=== PATIENT | female | born 1955 | race Caucasian/White ===

== ENCOUNTER 2016-06-26 15:38 | Emergency (ER) | payer BC ==
[~2016-06-26] VITALS: Ht 167.6 cm; Wt 68.2 kg
[~2016-06-26 15:38] MED LIST: PRINZIDE 12.5 M1 TA1 PO
[2016-06-26 15:42] VITALS: BP 113/62; TEMP 97.7
[2016-06-26 16:19] LABS: BASO # 0.1 (0.0-0.2); BASO % 0.4 % (0.0-2.0); EOS # 0.3 (0.0-0.7); EOS % 1.9 % (0-4.0); GRAN # 10.8 (1.4-6.5); GRAN % 77.1 % (42.2-75.2); HEMATOCRIT 45.8 % (37.0-47.0); HEMOGLOBIN 15.2 g/dl (12.5-16.0); LYMPH % 14.3 % (20.0-51.0); MEAN CELL VOLUME 90 fl (80.0-100.0); MEAN CORPUSCULAR HEMOGLOBIN 30 pg (27.0-31.0); MEAN CORPUSCULAR HGB CONC 33 g/dl (33.0-37.0); MEAN PLATELET VOLUME 11.5 fl (7.4-10.4); MONO # 0.8 (0.1-0.6); PLATELET COUNT 160 K/mm3 (130-400); RED BLOOD COUNT 5.09 M/mm3 (4.10-5.30); REDCELL DISTRIBUTION WIDTH-CV 13.5 % (11.5-14.5); WHITE BLOOD COUNT 13.9 K/mm3 (4.8-10.8)
[2016-06-26 16:26] LABS: PH 5 (5-8); SQUAMOUS EPITHELIAL 0-2 /hpf; URINE APPEARANCE Cloudy; URINE BACTERIA None Seen /hpf; URINE BILIRUBIN Negative (NEGATIVE); URINE BLOOD 3+ (NEGATIVE); URINE COLOR Yellow; URINE GLUCOSE Negative (NEGATIVE); URINE KETONE Negative (NEGATIVE); URINE RBC >50 /hpf; URINE UROBILINOGEN Negative (NEGATIVE); URINE WBC >50 /hpf
[2016-06-26 16:30] LABS: ADJUSTED CALCIUM 9.7 mg/dL (8.4-10.2); ALBUMIN 4.1 gm/dL (3.5-5.0); BILIRUBIN,TOTAL 0.7 mg/dL (0.0-1.0); CALCIUM 9.8 mg/dL (8.4-10.2); CREATININE, serum 0.9 mg/dL (0.52-1.25); POTASSIUM 3.9 mmol/L (3.4-5.0); TOTAL PROTEIN 7.1 gm/dL (6.4-8.2)
[2016-06-26] MEDS ORDERED: NORCO 325 MG-51 TAB PO (17:29)
[2016-06-26] MEDS ORDERED: OMNICEF 300MG300 MG PO (17:29)
[2016-06-26 17:39] VITALS: PULSE 75
== END 2016-06-26 17:39 | disposition home or self-care (01) ==
LOC: COL.ER 15:38
PROVIDERS: Nurse Practitioner
DX: N20.2 Calculus of kidney with calculus of ureter (principal); I10 Essential (primary) hypertension; F17.210 Nicotine dependence, cigarettes, uncomplicated; N27.0 Small kidney, unilateral
CPT/HCPCS: J0696; J1885; J2405; J3010; J7030; Q9967

== ENCOUNTER 2016-09-19 08:33 | Inpatient (IN) | payer BC ==
[~2016-09-19] VITALS: Ht 165.1 cm; Wt 75.3 kg
[~2016-09-19 08:33] MED LIST changes: +NORCO 325 MG-51 TAB PO; +OMNICEF 300MG300 MG PO
[2016-09-20] VITALS (10 sets, daily range): BP systolic 116–131; BP diastolic 55–89; PULSE 68–86; TEMP 97.4–97.7
[2016-09-20] MEDS ORDERED: NORCO 325 MG-51 TAB PO (09:30)
[2016-09-20 10:11] LABS: HEMATOCRIT 44.3 % (37.0-47.0); HEMOGLOBIN 14.7 g/dl (12.5-16.0)
[2016-09-20 13:24] LABS: BASO % 0.3 % (0.0-2.0); EOS # 0.1 (0.0-0.7); EOS % 1.3 % (0-4.0); GRAN # 8.7 (1.4-6.5); GRAN % 84.7 % (42.2-75.2); HEMATOCRIT 40.2 % (37.0-47.0); HEMOGLOBIN 13.5 g/dl (12.5-16.0); LYMPH # 1.1 (1.2-3.4); LYMPH % 10.7 % (20.0-51.0); MEAN CELL VOLUME 91 fl (80.0-100.0); MEAN CORPUSCULAR HEMOGLOBIN 31 pg (27.0-31.0); MEAN CORPUSCULAR HGB CONC 34 g/dl (33.0-37.0); MONO # 0.3 (0.1-0.6); MONO % 2.6 % (1.7-9.3); PLATELET COUNT 139 K/mm3 (130-400); RED BLOOD COUNT 4.41 M/mm3 (4.10-5.30); REDCELL DISTRIBUTION WIDTH-CV 14.1 % (11.5-14.5); WHITE BLOOD COUNT 10.3 K/mm3 (4.8-10.8)
[2016-09-20 13:35] LABS: CALCIUM 8.8 mg/dL (8.4-10.2); CREATININE, serum 0.98 mg/dL (0.52-1.25); POTASSIUM 4.4 mmol/L (3.4-5.0)
[2016-09-21 01:14] VITALS: BP 130/57; PULSE 78; TEMP 98.2
[2016-09-21 05:08] VITALS: BP 118/55; PULSE 79; TEMP 97.7
[2016-09-21 07:09] LABS: BASO % 0.2 % (0.0-2.0); EOS % 0.1 % (0-4.0); GRAN # 10.4 (1.4-6.5); GRAN % 80.2 % (42.2-75.2); HEMOGLOBIN 12.1 g/dl (12.5-16.0); LYMPH # 1.6 (1.2-3.4); LYMPH % 12.7 % (20.0-51.0); MEAN CELL VOLUME 91 fl (80.0-100.0); MEAN CORPUSCULAR HEMOGLOBIN 30 pg (27.0-31.0); MEAN CORPUSCULAR HGB CONC 33 g/dl (33.0-37.0); MEAN PLATELET VOLUME 11.5 fl (7.4-10.4); MONO # 0.8 (0.1-0.6); MONO % 6.3 % (1.7-9.3); PLATELET COUNT 137 K/mm3 (130-400); RED BLOOD COUNT 4.04 M/mm3 (4.10-5.30); REDCELL DISTRIBUTION WIDTH-CV 14.3 % (11.5-14.5); WHITE BLOOD COUNT 12.9 K/mm3 (4.8-10.8)
[2016-09-21 07:22] LABS: CALCIUM 8.6 mg/dL (8.4-10.2); CREATININE, serum 1.12 mg/dL (0.52-1.25); POTASSIUM 4.5 mmol/L (3.4-5.0)
[2016-09-21 07:35] LABS: HEMATOCRIT 36.6 % (37.0-47.0)
[2016-09-21 09:45] VITALS: BP 132/69; PULSE 71; TEMP 97.8
[2016-09-21 13:59] VITALS: BP 135/71; PULSE 86; TEMP 97.5
== END 2016-09-21 15:55 | disposition home or self-care (01) | DRG 660 ==
LOC: INPTSU 09-20 09:12 → SURG 09-20 09:12
PROVIDERS: Nurse Anesthetist, Certified Registered; Urology
PROC: 8E0W4CZ Robotic Assisted Procedure of Trunk Region, Percutaneous Endoscopic Approach (ICD-10-PCS; 2016-09-20)
PROC: 0TT04ZZ Resection of Right Kidney, Percutaneous Endoscopic Approach (ICD-10-PCS; principal; 2016-09-20 11:15)
DX: I12.9 Hypertensive chronic kidney disease with stage 1 through stage 4 chronic kidney disease, or unspecified chronic kidney disease (principal); N20.1 Calculus of ureter; N18.9 Chronic kidney disease, unspecified
CPT/HCPCS: A4315; A9284; J1100; J1644; J1885; J2405; J2704; J3010; J7120

== ENCOUNTER 2020-04-30 07:30 | Day surgery (SDC) | payer BC ==
[~2020-04-30] VITALS: Ht 167.6 cm; Wt 31.3 kg
[2020-04-30 08:06] VITALS: BP 142/65; PULSE 77; TEMP 97.5
--- NOTE | 2020-04-30 08:13 | NUR ---
TO [facility] 4 AT 0746- CALL LIGHT IN REACH
[2020-04-30] MEDS ORDERED: PRINIVIL20 MG PO (08:15)
[2020-04-30 09:42] VITALS: BP 96/56; PULSE 83
--- NOTE | 2020-04-30 09:42 | NUR ---
TO [facility] 4 PER CART FROM ENDOSCOPY. ALERT ORIENTED AND TALKING WITH STAFF. AMBULATED TO RECLINER WITH ASSIST AND TOLERATED WELL. RECEIVED SPRITE. DENIES WANTING ANYTHING TO EAT.
[2020-04-30 10:00] VITALS: BP 99/61; PULSE 82
--- NOTE | 2020-04-30 10:00 | NUR ---
DRANK 100% AND TOLERATED WELL WAS CALLED FOR RIDE HOME.
[2020-04-30 10:15] VITALS: BP 106/57; PULSE 79
--- NOTE | 2020-04-30 10:15 | NUR ---
RECEIVED DISCHARGE INSTRUCTIONS AND VERBALIZED UNDERSTANDING. DISCONTINUED IV AND INT- CATHETER INTACT. PATIENT GETTING DRESSED.
--- NOTE | 2020-04-30 10:20 | NUR ---
DISCHARGED PER WC BY NURSING STAFF TO PRIVATE CAR IN CARE OF [facility].
== END 2020-04-30 10:48 | disposition home or self-care (01) ==
LOC: SDCO 07:30
DX: Z12.11 Encounter for screening for malignant neoplasm of colon (principal); K57.30 Diverticulosis of large intestine without perforation or abscess without bleeding; I10 Essential (primary) hypertension; J44.9 Chronic obstructive pulmonary disease, unspecified; Z87.891 Personal history of nicotine dependence; Z90.5 Acquired absence of kidney; Z86.010 Personal history of colon polyps; Z88.5 Allergy status to narcotic agent; Z90.49 Acquired absence of other specified parts of digestive tract
CPT/HCPCS: J2704; J7030

== ENCOUNTER → 2023-04-19 | Outpatient (CLI) | payer BC ==
[~2023-04-19] MED LIST changes: +PRINIVIL20 MG PO
== END ==
LOC: COL.RAD 13:06
DX: Z12.2 Encounter for screening for malignant neoplasm of respiratory organs (principal); Z87.891 Personal history of nicotine dependence

== ENCOUNTER 2023-09-02 14:22 | Emergency (ER) | payer BC ==
[~2023-09-02] VITALS: Ht 165.1 cm; Wt 63.6 kg
[2023-09-02 14:33] VITALS: TEMP 97.7
[2023-09-02] MEDS ORDERED: NS 1,000 ML IV ONE (14:45)
[2023-09-02 15:03] LABS: COLLECTION METHOD CLEAN CATCH
[2023-09-02 15:07] LABS: BASO % 0.4 % (0.0-2.0); EOS # 0.1 K/mm3 (0.0-0.7); EOS % 1.4 % (0.0-4.0); GRAN # 6.6 K/mm3 (1.4-6.5); GRAN % 71.8 % (42.2-75.2); HEMATOCRIT 51.4 % (37.0-47.0); HEMOGLOBIN 16.8 g/dl (12.5-16.0); LYMPH # 1.9 K/mm3 (1.2-3.4); LYMPH % 20.6 % (20.0-51.0); MEAN CELL VOLUME 90 fl (80.0-100.0); MEAN CORPUSCULAR HEMOGLOBIN 29 pg (27-31); MEAN CORPUSCULAR HGB CONC 33 g/dl (33.0-37.0); MEAN PLATELET VOLUME 11.3 fl (7.4-10.4); MONO # 0.5 K/mm3 (0.1-0.6); MONO % 5.6 % (1.7-9.3); PLATELET COUNT 196 K/mm3 (130-400); RED BLOOD COUNT 5.74 M/mm3 (4.10-5.30)
[2023-09-02 15:14] LABS: PH 5.5 (5.0-8.5); URINE APPEARANCE CLOUDY (CLEAR/HAZY); URINE BLOOD NEGATIVE (NEGATIVE); URINE COLOR Dark Yellow (YELLOW); URINE GLUCOSE NEGATIVE (NEGATIVE); URINE KETONE TRACE (NEGATIVE); URINE NITRATE NEGATIVE (NEGATIVE); URINE PROTEIN(semi-quant) 1+ (NEGATIVE)
[2023-09-02 15:26] LABS: ALBUMIN 3.8 g/dL (3.4-4.8); BILIRUBIN,TOTAL 0.6 mg/dL (0.2-1.2); C-REACTIVE PROTEIN 0.14 mg/dL (0.00-0.50); CALCIUM 10.1 mg/dL (8.4-10.2); CREATININE, serum 0.96 mg/dL (0.57-1.11); POTASSIUM 4.1 mEq/L (3.5-4.5); TOTAL PROTEIN 7.2 g/dl (6.2-8.1)
[2023-09-02 15:31] LABS: URINE RBC 0-2 /hpf (0-2)
[2023-09-02 15:32] LABS: URINE BACTERIA OCCASIONAL /hpf (NONE SEEN)
[2023-09-02 15:33] LABS: MUCOUS PRESENT (NOT PRESENT)
[2023-09-02] MEDS ORDERED: NS 100 ML IV SCH (16:49)
[2023-09-02] MEDS ORDERED: Iohexol 300 - 100 ML VIAL IV ONE (16:49)
[2023-09-02] MEDS ORDERED: CEFTIN500 MG PO (17:58)
[2023-09-02] MEDS ORDERED: cefTRIAXone 1 G in Water For Injection,Sterile 10 ML IV ONE (18:00)
[2023-09-02] MEDS ORDERED: Home Ondansetron ODT 4 MG #2 ODT/PACK PO ONE (18:15)
[2023-09-02 18:30] VITALS: BP 148/79; PULSE 78
== END 2023-09-02 18:30 | disposition home or self-care (01) ==
LOC: COL.ER 14:22
PROVIDERS: Nurse Practitioner
DX: N39.0 Urinary tract infection, site not specified (principal); Q60.0 Renal agenesis, unilateral; Z87.891 Personal history of nicotine dependence
CPT/HCPCS: J0696; J7030; Q9967